=== PATIENT | male | born 1950 | race Two or more races ===

== ENCOUNTER → 2022-01-10 | Emergency (ER) | payer OTHER ==
[~2022-01-10] VITALS: Ht 172.7 cm; Wt 100.7 kg
[~2022-01-10] MED LIST: DOCU-94 PO; DOCUSATE SOD 100 MG CAP PO ONE
[2022-01-10 10:38] VITALS: BP 115/73
[2022-01-10 11:41] LABS: Basophils # (auto) 0.1 10 ^3/uL (0-0.2); Basophils % (auto) 0.5 % (0.0-2.0); Eosinophils # (auto) 0.1 10 ^3/uL (0-0.8); Eosinophils % (auto) 0.9 % (0.0-7.0); Hematocrit 35.1 % (41.0-53.0); Hemoglobin 11.7 g/dL (13.5-17.5); Lymphocytes # (auto) 1.3 10 ^3/uL (0.4-5.4); Lymphocytes % (auto) 13.5 % (10.0-50.0); Mean Corpuscular Hgb Conc. 33.4 g/dL (32.0-36.0); Monocytes # (auto) 0.5 10 ^3/uL (0-1.3); Monocytes % (auto) 5.7 % (0.0-12.0); Neutrophils # (auto) 7.5 10 ^3/uL (1.6-8.6); Neutrophils % (auto) 79.4 % (37.0-80.0); Nucleated Red Blood Cells % 0.2 %; White Blood Cell 9.5 10^3/uL (4.4-10.8)
[2022-01-10 11:55] LABS: Albumin 3.1 g/dL (3.4-5.0); Calcium 8.8 mg/dL (8.5-10.1); Potassium 4.3 mmol/L (3.5-5.1)
[2022-01-10 11:57] LABS: INR 1.12 (0.9-1.15); Partial Thromboplastin Time 26.2 sec (23.6-33.0)
[2022-01-10 11:59] LABS: BUN/Creatinine Ratio 15.4; Bilirubin, Total 0.8 mg/dL (0.2-1.0); Total Protein 8.3 g/dL (6.4-8.2)
== END | disposition home or self-care (01) ==
LOC: ER 10:36
DX: K59.00 Constipation, unspecified (principal); I10 Essential (primary) hypertension; Z90.49 Acquired absence of other specified parts of digestive tract; Z88.8 Allergy status to other drugs, medicaments and biological substances
CPT/HCPCS: 36415; 71045; 74176; 80053; 83880; 84484; 85025; 85610; 85730; 93005